=== PATIENT | female | born 1995 | race Caucasian/White ===

== ENCOUNTER 2017-02-09 10:30 | Emergency (ER) | payer OTHER ==
--- NOTE | 2017-02-09 11:35 | C.PDOC ---
History Of Present Illness CO SUPRAPUB PAIN, DYSURIA X 1 WEEK. NO RELIEF W OTC UTI MEDS. NO FEVER, OTHER ASSOC SX EXAM NEG Time Seen by Provider: 02/09/17 11:00 Chief Complaint (Nursing): Female Genitourinary History Per: Patient History/Exam Limitations: no limitations Onset/Duration Of Symptoms: Days (1 week) Past Medical History Reviewed: Historical Data, Nursing Documentation, Vital Signs Vital Signs: Last Vital Signs Temp 98 F 02/09/17 12:03 Pulse 78 02/09/17 12:03 Resp 20 02/09/17 12:03 BP 104/70 02/09/17 12:03 Pulse Ox 99 02/09/17 12:03 Family History: States: No Known Family Hx - Social History Hx Alcohol Use: No Hx Substance Use: No - Immunization History Hx Tetanus Toxoid Vaccination: No Hx Influenza Vaccination: No Hx Pneumococcal Vaccination: No Review Of Systems Constitutional: Negative for: Fever Gastrointestinal: Positive for: Abdominal Pain (Superpubic). Negative for: Vomiting, Diarrhea Genitourinary: Positive for: Dysuria Musculoskeletal: Negative for: Back Pain Physical Exam - Physical Exam Appears: Non-toxic, No Acute Distress Skin: Warm, Dry Head: Atraumatic, Normacephalic Oral Mucosa: Moist Respiratory: Normal Breath Sounds, No Rales, No Rhonchi, No Stridor, No Wheezing Gastrointestinal/Abdominal: Normal Exam, Soft, No Tenderness, No Guarding, No Rebound Back: Normal Inspection, No CVA Tenderness Extremity: Normal ROM, No Swelling Neurological/Psych: Oriented x3, Normal Speech, Normal Motor ED Course And Treatment O2 Sat by Pulse Oximetry: 100 (RA) Pulse Ox Interpretation: Normal Medical Decision Making Medical Decision Making: PLAN: * POC * Urinalysis Disposition Counseled Patient/Family Regarding: Studies Performed, Diagnosis, Need For Followup, Rx Given - Disposition Referrals: [facility] [Outside] [facility] [Outside] Disposition: HOME/ ROUTINE Disposition Time: 11:57 Condition: GOOD Prescriptions: Nitrofurantoin Macrocrystals [Macrobid] 1 cap PO BID #14 cap Instructions: Urinary Tract Infection in Women (ED) Forms: [facility] (Faroese) Print Language: FAROESE - Clinical Impression Clinical Impression: Urinary tract infection - Scribe Statement The provider has reviewed the documentation as recorded by the Scribe Liz Loaiza Provider Attestation: All medical record entries made by the Lin were at my direction and personally dictated by me. I have reviewed the chart and agree that the record accurately reflects my personal performance of the history, physical exam, medical decision making, and the department course for this patient. I have also personally directed, reviewed, and agree with the discharge instructions and disposition.
[2017-02-09 11:39] LABS: URINE BACTERIA RARE (<OCC); URINE BILIRUBIN NEGATIVE (NEGATIVE); URINE BLOOD NEGATIVE (NEGATIVE); URINE GLUCOSE (UA) NORMAL (Normal); URINE KETONE NEGATIVE (NEGATIVE); URINE LEUKOCYTE ESTERASE NEG Leu/uL (Negative); URINE PROTEIN NEGATIVE (NEGATIVE)
[2017-02-09 11:44] LABS: RBC URINE 2 /hpf (0-3); URINE COLOR RED (YELLOW); WBC URINE 5 /hpf (0-5)
[2017-02-09 12:05] VITALS: BP 104/70; PULSE 78; RESP 20; TEMP 98
[2017-02-09 12:13] VITALS: O2SAT 100
== END 2017-02-09 12:16 | disposition home or self-care (01) ==
LOC: C.ER 10:30
DX: N39.0 Urinary tract infection, site not specified (principal)

== ENCOUNTER 2017-12-05 18:39 | Emergency (ER) | payer OTHER ==
--- NOTE | 2017-12-05 19:27 | C.PDOC ---
History Of Present Illness 22 year old female presents to the ED complaining of anxiety for the last month but worse for the last two days. She reports she hears voices. She also complains of palpitations and she is unable to sleep at night. She denies any SI/HI, depression, fever, cough, or any other physical symptoms. Time Seen by Provider: 12/05/17 19:04 Chief Complaint (Nursing): Anxiety History Per: Patient, Family History/Exam Limitations: no limitations Onset/Duration Of Symptoms: Days Current Symptoms Are (Timing): Still Present Suicide/Self Injury Attempted (Context): None Modifying Factor(s): None Past Medical History Reviewed: Historical Data, Nursing Documentation, Vital Signs Vital Signs: Last Vital Signs Temp 98.2 F 12/05/17 18:56 Pulse 91 H 12/05/17 18:56 Resp 18 12/05/17 18:56 BP 126/86 12/05/17 18:56 Pulse Ox 96 12/05/17 18:56 - Medical History PMH: No Chronic Diseases Surgical History: No Surg Hx Family History: States: No Known Family Hx - Social History Hx Alcohol Use: No Hx Substance Use: No - Immunization History Hx Tetanus Toxoid Vaccination: No Hx Influenza Vaccination: No Hx Pneumococcal Vaccination: No Review Of Systems Except As Marked, All Systems Reviewed And Found Negative. Constitutional: Negative for: Fever Respiratory: Negative for: Cough Psych: Positive for: Anxiety. Negative for: Depression, Suicidal ideation Physical Exam - Physical Exam Appears: Non-toxic, Other (Slightly anxious ) Skin: Warm, Dry Head: Normacephalic Eye(s): bilateral: Normal Inspection Nose: Normal Oral Mucosa: Moist Neck: Normal ROM Chest: Symmetrical Cardiovascular: Rhythm Regular Respiratory: Normal Breath Sounds, No Rales, No Rhonchi, No Wheezing Gastrointestinal/Abdominal: Soft, No Tenderness Extremity: Normal ROM Neurological/Psych: Oriented x3, Normal Speech Gait: Steady ED Course And Treatment - Laboratory Results Result Diagrams: 12/05/17 19:51 12/05/17 19:51 ECG: Interpreted By Me, Viewed By Me Interpretation Of ECG: No ST/T changes. Rate From EC O2 Sat by Pulse Oximetry: 96 (RA) Pulse Ox Interpretation: Normal Medical Decision Making Medical Decision Making: will medically clear pending crisis eval. Orders: - EKG - Labwork - Bloodwork - UA Progress/Updates: Labs reviewed. 8:45pm Patient is medically cleared. urine treated no sirs criteria no leuokcytosi. neck suppple no meniingmus. 9:20pm Upon Crisis Evaluation, patient is cleared for discharge. Disposition - Disposition Referrals: [facility] [Outside] [facility] [Outside] Disposition: HOME/ ROUTINE Disposition Time: 21:00 Condition: STABLE Additional Instructions: follow up as directed by livestock farmworker. follow up in clinic. return to er with worsening symptoms or concerns. Prescriptions: RX: Cefpodoxime [Vantin] 100 mg PO BID #20 tab Instructions: Urinary Tract Infections in Adults, Bipolar Disorder Forms: [facility] (Mongolian) Print Language: TRISTANIAN - Clinical Impression Clinical Impression: Anxiety, UTI (urinary tract infection) - Scribe Statement The provider has reviewed the documentation as recorded by the Scribe Farida Talamantes All medical record entries made by the Scribe were at my direction and personally dictated by me. I have reviewed the chart and agree that the record accurately reflects my personal performance of the history, physical exam, medical decision making, and the department course for this patient. I have also personally directed, reviewed, and agree with the discharge instructions and disposition.
[2017-12-05 20:02] LABS: BASO % 0.7 % (0.0-2.0); EOS # 0.1 K/uL (0.0-0.7); EOS % 1.2 % (0.0-4.0); HEMOGLOBIN 13.1 g/dL (11.0-16.0); LYMPH # 1.9 K/uL (1.0-4.3); LYMPH % 28.9 % (20.0-40.0); MEAN CELL VOLUME 87.6 fL (81.0-99.0); MEAN CORPUSCULAR HEMOGLOBIN 30.3 pg (27.0-31.0); MEAN CORPUSCULAR HGB CONC 34.6 g/dL (33.0-37.0); MEAN PLATELET VOLUME 9.6 fL (7.2-11.7); MONO # 0.6 K/uL (0.0-0.8); MONO % 9.5 % (0.0-10.0); NEUT # 3.9 K/uL (1.8-7.0); NEUT % 59.7 % (50.0-75.0); NRBC % 0.1 % (0.0-2.0); RBC 4.3 Mil/uL (3.80-5.20); WHITE BLOOD COUNT 6.5 K/uL (4.8-10.8)
[2017-12-05 20:11] LABS: HCG,QUALITATIVE URINE NEGATIVE (NEGATIVE)
[2017-12-05 20:14] LABS: SQUAMOUS EPITHIAL 3 /hpf (0-5); URINE BACTERIA FEW (<OCC); URINE BILIRUBIN NEGATIVE (NEGATIVE); URINE BLOOD NEGATIVE (NEGATIVE); URINE CLARITY Clear (Clear); URINE COLOR Yellow (YELLOW); URINE GLUCOSE (UA) NORMAL (Normal); URINE LEUKOCYTE ESTERASE 2+ Leu/uL (Negative); URINE PROTEIN NEGATIVE (NEGATIVE); URINE UROBILINOGEN NORMAL mg/dL (0.2-1.0)
[2017-12-05 20:19] LABS: BARBITURATES, UR NEGATIVE (NEGATIVE); BENZODIAZEPINES, UR NEGATIVE (NEGATIVE); OPIATES, UR NEGATIVE (NEGATIVE); PHENCYCLIDINE, UR NEGATIVE (NEGATIVE)
[2017-12-05 20:42] LABS: ACETAMINOPHEN < 10.0 ug/mL (10.0-30.0); ALB/GLOB RATIO 1.3 (1.0-2.1); ALBUMIN 4.4 g/dL (3.5-5.0); ALT/SGPT 36 U/L (9-52); AST/SGOT 56 U/L (14-36); BLOOD UREA NITROGEN 8 mg/dL (7-17); CALCIUM 9.7 mg/dl (8.6-10.4); GFR NON-AFRICAN AMERICAN > 60; SALICYLATE < 1.0 [, mg/dL 1]
[2017-12-05 21:42] VITALS: BP 113/75; PULSE 85; RESP 20; TEMP 99.2
[2017-12-05 23:27] VITALS: O2SAT 96
== END 2017-12-05 21:42 | disposition home or self-care (01) ==
LOC: C.ER 18:39
DX: F41.9 Anxiety disorder, unspecified (principal); N39.0 Urinary tract infection, site not specified